=== PATIENT | female | born 1985 | race Hispanic/Latino ===

== ENCOUNTER 2018-10-25 01:02 | Emergency (ER) | payer BC, OTHER ==
[2018-10-25 01:26] LABS: HEMATOCRIT 36.9 % (36-48); LYMPHOCYTES % (AUTO) 31.9 % (21.0-51.0); MEAN CORPUSCULAR HGB CONC 34.2 g/dL (32.0-36.0); MEAN CORPUSCULAR VOLUME 87.7 fL (79-99); MONOCYTES % (AUTO) 8.7 % (3.0-13.0); NEUTROPHILS % (AUTO) 56.4 % (40.0-77.0); NUCLEATED RED BLOOD CELLS 0.1 % (0.0-0.19); PLATELET COUNT (AUTO) 312 K/uL (130-400); RED BLOOD CELL COUNT(AUTO) 4.21 MIL/uL (4.00-5.50); RED CELL DISTRIBUTION WIDTH 14.3 % (11.0-15.5); WHITE BLOOD COUNT (AUTO) 9.4 K/uL (4.8-10.8)
[2018-10-25 01:35] LABS: APPEARANCE,URINE Clear (CLEAR); BILIRUBIN,URINE Negative (NEGATIVE); COLOR,URINE Yellow (YELLOW); GLUCOSE, URINE (UA) >=1000 mg/dL (NEGATIVE); KETONES,URINE 15 mg/dL (NEGATIVE); LEUKOCYTE ESTERASE ,URINE Negative (NEGATIVE); NITRATE,URINE Negative (NEGATIVE); OCCULT BLOOD,URINE Small (NEGATIVE); PROTEIN,URINE Negative (NEGATIVE)
[2018-10-25 01:35] LABS: CREATININE 0.9 mg/dL (0.5-1.5); POTASSIUM 4.1 mmol/L (3.5-5.1)
[2018-10-25 01:38] LABS: INR 0.89 (0.85-1.15); PARTIAL THROMBOPLASTIN TIME 23.7 SEC (26.3-35.5); PROTHROMBIN TIME 9.4 SEC (9.6-11.6)
[2018-10-25 01:39] LABS: HCG,QUAL RESULT NEGATIVE (NEGATIVE)
[2018-10-25 01:40] LABS: ALBUMIN 3.4 g/dL (3.5-5.0); BILIRUBIN,TOTAL 0.2 mg/dL (0.2-1.0); TOTAL PROTEIN, SERUM 7.3 g/dL (6.0-8.3)
[2018-10-25 01:43] LABS: AMPHET/METH SCREEN,URINE NEGATIVE (NEGATIVE); BARBITURATE SCREEN, URINE NEGATIVE (NEGATIVE); BENZODIAZEPINES SCREEN,URINE NEGATIVE (NEGATIVE); CANNABINOID SCREEN,URINE NEGATIVE (NEGATIVE); COCAINE SCREEN,URINE NEGATIVE (NEGATIVE); OPIATE SCREEN,URINE NEGATIVE (NEGATIVE); PHENCYCLIDINE SCREEN,URINE NEGATIVE (NEGATIVE)
[2018-10-25 02:08] LABS: BACTERIA,URINE Few /HPF (None Seen); WBC,URINE 0-1 /HPF (0-1)
[2018-10-25] MEDS ORDERED: 0.9% SODIUM CHLORIDE 1000 ML IV BAG IV ONE (02:30)
== END 2018-10-25 04:46 | disposition home or self-care (01) ==
LOC: EDH 01:02
DX: E86.9 Volume depletion, unspecified (principal); R73.9 Hyperglycemia, unspecified; R07.89 Other chest pain
CPT/HCPCS: 36415; 71045; 80053; 80305; 81001; 81025; 84484; 85025; 85378; 85610; 85730; 87804 ×2; 93005; 96360; 96361; 99284; J7030

== ENCOUNTER 2019-08-19 04:01 | Emergency (ER) | payer OTHER | END 2019-08-19 05:27 | disposition home or self-care (01) | LOC: EDH 04:01 | DX: J11.1 Influenza due to unidentified influenza virus with other respiratory manifestations (principal); E11.9 Type 2 diabetes mellitus without complications; Z98.890 Other specified postprocedural states ==

== ENCOUNTER 2019-09-07 10:14 | Emergency (ER) | payer OTHER ==
[2019-09-07 11:37] LABS: BASOPHILS % (AUTO) 0.4 % (0.0-5.0); EOSINOPHILS % (AUTO) 0.9 % (0.0-8.0); HEMATOCRIT 37.6 % (36-48); LYMPHOCYTES % (AUTO) 22.5 % (21.0-51.0); MEAN CORPUSCULAR HEMOGLOBIN 29.3 pg (27.0-33.0); MEAN CORPUSCULAR HGB CONC 34.3 g/dL (32.0-36.0); MEAN CORPUSCULAR VOLUME 85.3 fL (79-99); MONOCYTES % (AUTO) 7.6 % (3.0-13.0); NEUTROPHILS % (AUTO) 68.2 % (40.0-77.0); PLATELET COUNT (AUTO) 335 K/uL (130-400); RED BLOOD CELL COUNT(AUTO) 4.41 MIL/uL (4.00-5.50); WHITE BLOOD COUNT (AUTO) 10.2 K/uL (4.8-10.8)
[2019-09-07 11:45] LABS: CREATININE 0.8 mg/dL (0.5-1.5); POTASSIUM 4.1 mmol/L (3.5-5.1)
== END 2019-09-07 12:12 | disposition home or self-care (01) ==
LOC: EDH 10:14
DX: M62.838 Other muscle spasm (principal); E11.9 Type 2 diabetes mellitus without complications; Z98.890 Other specified postprocedural states
CPT/HCPCS: 36415; 72040; 80048; 81025; 82550; 82948; 85025

== ENCOUNTER 2019-09-14 10:53 | Emergency (ER) | payer OTHER, SELFPAY ==
[2019-09-14] MEDS ORDERED: AMOXICILLIN/POTASSIUM CLAV 875-125 TABLET PO ONE (11:05)
== END 2019-09-14 12:21 | disposition home or self-care (01) ==
LOC: EDH 10:53
DX: L03.011 Cellulitis of right finger (principal); E11.9 Type 2 diabetes mellitus without complications; Z98.890 Other specified postprocedural states

== ENCOUNTER 2019-12-15 10:37 | Emergency (ER) | payer OTHER, SELFPAY ==
[2019-12-15] MEDS ORDERED: ONDANSETRON HCL 4 MG/2 ML VIAL ONE ×2 (11:08→11:09)
[2019-12-15 11:17] LABS: CREATININE 0.9 mg/dL (0.5-1.5); POTASSIUM 3.6 mmol/L (3.5-5.1)
[2019-12-15 11:21] LABS: ALBUMIN 3.7 g/dL (3.5-5.0); BILIRUBIN,DIRECT 0.2 mg/dL (0.0-0.3); BILIRUBIN,TOTAL 0.5 mg/dL (0.2-1.0)
[2019-12-15 11:22] LABS: BASOPHILS % (AUTO) 0.6 % (0.0-5.0); EOSINOPHILS % (AUTO) 2.7 % (0.0-8.0); HEMATOCRIT 39.9 % (36-48); LYMPHOCYTES % (AUTO) 23.6 % (21.0-51.0); MEAN CORPUSCULAR HEMOGLOBIN 29.6 pg (27.0-33.0); MEAN CORPUSCULAR HGB CONC 34.1 g/dL (32.0-36.0); MEAN CORPUSCULAR VOLUME 86.7 fL (79-99); MONOCYTES % (AUTO) 5.7 % (3.0-13.0); NEUTROPHILS % (AUTO) 66.6 % (40.0-77.0); PLATELET COUNT (AUTO) 419 K/uL (130-400); RED CELL DISTRIBUTION WIDTH 12.7 % (11.0-15.5); WHITE BLOOD COUNT (AUTO) 14.7 K/uL (4.8-10.8)
[2019-12-15] MEDS ORDERED: KETOROLAC TROMETHAMINE 30MG/ML ONE (11:55)
[2019-12-15 12:07] LABS: APPEARANCE,URINE Clear (CLEAR); BILIRUBIN,URINE Negative (NEGATIVE); COLOR,URINE Yellow (YELLOW); GLUCOSE, URINE (UA) TRACE mg/dL (NEGATIVE); KETONES,URINE Trace mg/dL (NEGATIVE); LEUKOCYTE ESTERASE ,URINE Negative (NEGATIVE); NITRATE,URINE Negative (NEGATIVE); OCCULT BLOOD,URINE Nonhemolyzed Trace (NEGATIVE); PROTEIN,URINE POS 1+ mg/dL (NEGATIVE)
[2019-12-15 12:10] LABS: HCG,QUAL RESULT NEGATIVE (NEGATIVE)
[2019-12-15 12:15] LABS: AMPHET/METH SCREEN,URINE NEGATIVE (NEGATIVE); BARBITURATE SCREEN, URINE NEGATIVE (NEGATIVE); BENZODIAZEPINES SCREEN,URINE NEGATIVE (NEGATIVE); CANNABINOID SCREEN,URINE NEGATIVE (NEGATIVE); COCAINE SCREEN,URINE POSITIVE (NEGATIVE); OPIATE SCREEN,URINE NEGATIVE (NEGATIVE); PHENCYCLIDINE SCREEN,URINE NEGATIVE (NEGATIVE)
[2019-12-15 12:16] LABS: BACTERIA,URINE Few /HPF (None Seen); MUCUS,URINE Many LPF (None Seen); WBC,URINE None Seen /HPF (0-1)
== END 2019-12-15 12:53 | disposition home or self-care (01) ==
LOC: EDH 10:37
DX: K29.00 Acute gastritis without bleeding (principal); F14.10 Cocaine abuse, uncomplicated; E11.9 Type 2 diabetes mellitus without complications; Z98.890 Other specified postprocedural states
CPT/HCPCS: 36415; 80048; 80076; 80305; 81001; 81025; 82550; 82948; 85025; 93005; 96361; 96374; 96375; 99284; J1885; J2405 ×2

== ENCOUNTER → 2021-01-31 | Outpatient (CLI) | payer MEDICAID ==
[~2021-01-31] MED LIST: GADOTERATE MEGLUMINE 10 MMOL/20 ML VIAL IV ONE
== END | disposition home or self-care (01) ==
LOC: RAH 13:01
PROVIDERS: ATTEND Otolaryngology Plastic Surgery within the Head & Neck
DX: H90.3 Sensorineural hearing loss, bilateral (principal); G93.89 Other specified disorders of brain
CPT/HCPCS: 70553; A9575

== ENCOUNTER 2023-12-17 04:27 | Emergency (ER) | payer MEDICAID ==
[~2023-12-17 04:27] MED LIST changes: +CEFU500T67 PO; +DICY10CA2 PO; -GADOTERATE MEGLUMINE 10 MMOL/20 ML VIAL IV ONE
[2023-12-17 04:49] LABS: BASOPHILS # (AUTO) 0.06 K/uL (0.00-0.20); BASOPHILS % (AUTO) 0.7 % (0.0-5.0); EOSINOPHILS # (AUTO) 0.34 K/uL (0.00-0.70); HEMATOCRIT 37.3 % (36-48); IMMATURE GRANULOCYTE ABSOLUTE 0.03 K/uL (0-1); LYMPHOCYTES # (AUTO) 3.5 K/uL (1.0-4.8); LYMPHOCYTES % (AUTO) 41.1 % (21.0-51.0); MEAN CORPUSCULAR HEMOGLOBIN 28.7 pg (27.0-33.0); MEAN CORPUSCULAR VOLUME 87.1 fL (79-99); MONOCYTES # (AUTO) 0.7 K/uL (0.1-1.0); MONOCYTES % (AUTO) 7.8 % (3.0-13.0); NEUTROPHILS # (AUTO) 3.9 K/uL (1.8-7.7); PLATELET COUNT (AUTO) 369 K/uL (130-400); RED BLOOD CELL COUNT(AUTO) 4.28 MIL/uL (4.00-5.50); RED CELL DISTRIBUTION WIDTH 13.5 % (11.0-15.5); WHITE BLOOD COUNT (AUTO) 8.5 K/uL (4.8-10.8)
[2023-12-17 05:03] LABS: CREATININE 0.8 mg/dL (0.5-1.0); POTASSIUM 3.9 mmol/L (3.5-5.1)
[2023-12-17 05:08] LABS: ALBUMIN 3.5 g/dL (3.5-5.0); BILIRUBIN,TOTAL 0.2 mg/dL (0.2-1.0); TOTAL PROTEIN, SERUM 7.8 g/dL (6.0-8.3)
[2023-12-17] MEDS ORDERED: FAMO20TA8 PO (06:14)
[2023-12-17 06:44] VITALS: BP 138/68; PULSE 79; RESP 18; O2SAT 98
== END 2023-12-17 06:46 | disposition home or self-care (01) ==
LOC: EDH 04:27
DX: K29.70 Gastritis, unspecified, without bleeding (principal)
CPT/HCPCS: 36415; 71045; 80053; 84484; 84703; 85025; 93005

== ENCOUNTER 2024-07-29 21:22 | Emergency (ER) | payer BC, MEDICAID ==
[~2024-07-29] VITALS: Ht 157.5 cm; Wt 99.8 kg
[~2024-07-29 21:22] MED LIST changes: +FAMO20TA8 PO
[2024-07-29 21:55] LABS: BASOPHILS # (AUTO) 0.03 K/uL (0.00-0.20); BASOPHILS % (AUTO) 0.3 % (0.0-5.0); EOSINOPHILS # (AUTO) 0.17 K/uL (0.00-0.70); EOSINOPHILS % (AUTO) 1.6 % (0.0-8.0); HEMATOCRIT 36.9 % (36-48); IMMATURE GRANULOCYTE ABSOLUTE 0.02 K/uL (0-1); LYMPHOCYTES # (AUTO) 3.2 K/uL (1.0-4.8); LYMPHOCYTES % (AUTO) 30.1 % (21.0-51.0); MEAN CORPUSCULAR HEMOGLOBIN 29.4 pg (27.0-33.0); MEAN CORPUSCULAR HGB CONC 34.1 g/dL (32.0-36.0); MEAN CORPUSCULAR VOLUME 86.2 fL (79-99); MONOCYTES # (AUTO) 0.6 K/uL (0.1-1.0); MONOCYTES % (AUTO) 5.4 % (3.0-13.0); NEUTROPHILS # (AUTO) 6.7 K/uL (1.8-7.7); NEUTROPHILS % (AUTO) 62.4 % (40.0-77.0); PLATELET COUNT (AUTO) 321 K/uL (130-400); RED BLOOD CELL COUNT(AUTO) 4.28 MIL/uL (4.00-5.50); RED CELL DISTRIBUTION WIDTH 13.1 % (11.0-15.5); WHITE BLOOD COUNT (AUTO) 10.7 K/uL (4.8-10.8)
[2024-07-29 21:57] LABS: APPEARANCE,URINE CLEAR (CLEAR); BILIRUBIN,URINE NEGATIVE (NEGATIVE); COLOR,URINE YELLOW (YELLOW); GLUCOSE, URINE (UA) NEGATIVE (NEGATIVE); KETONES,URINE NEGATIVE (NEGATIVE); LEUKOCYTE ESTERASE ,URINE NEGATIVE Leu/uL (NEGATIVE); NITRATE,URINE NEGATIVE (NEGATIVE); OCCULT BLOOD,URINE MODERATE (NEGATIVE); PH,URINE 5.5 (5.0-8.0); PROTEIN,URINE 20 mg/dL (NEGATIVE); UROBILINOGEN,URINE 0.2 mg/dL (0.2-1.0)
[2024-07-29 22:03] LABS: ADD UA MICROSCOPIC YES
[2024-07-29 22:03] LABS: CREATININE 0.7 mg/dL (0.5-1.0); POTASSIUM 3.6 mmol/L (3.5-5.1)
[2024-07-29 22:05] LABS: HCG,QUALITATIVE URINE NEGATIVE (NEGATIVE)
[2024-07-29 22:07] LABS: BACTERIA,URINE RARE /HPF (None Seen); MUCUS,URINE FEW LPF (None Seen); SQUAMOUS EPITHELIAL CELL,UR FEW /HPF (0-2); WBC,URINE 0-1 /HPF (0-1)
[2024-07-29 22:09] LABS: ALBUMIN 3.7 g/dL (3.5-5.0); BILIRUBIN,TOTAL 0.5 mg/dL (0.2-1.0); TOTAL PROTEIN, SERUM 7.7 g/dL (6.0-8.3)
[2024-07-29] MEDS: PANTOPrazole 40 MG/VIAL IVP ONE (22:41)
[2024-07-29] MEDS: 0.9%NACL 1000ML 1,000 ML IV ONE (22:41)
[2024-07-29] MEDS: ondanSETRON 4MG INJ IVP ONE (22:41)
[2024-07-29 23:52] LABS: BILIRUBIN,DIRECT 0.1 mg/dL (0.0-0.3)
[2024-07-30] MEDS: DICYCLOMINE HCL 10 MG/5 ML ML PO ONE (00:29)
[2024-07-30] MEDS: MAG/ALUM/SIMETH 30 ML UDCUP PO ONE (00:29)
[2024-07-30] MEDS: LIDOCAINE HCL 2% VISCOUS 15 ML UDCUP PO ONE (00:29)
[2024-07-30] MEDS: morPHINE 4 MG SYG IVP ONE (00:34)
[2024-07-30] MEDS ORDERED: DICY20TA2 PO (00:50)
[2024-07-30] MEDS ORDERED: PANT20TA18 PO (00:50)
[2024-07-30] MEDS ORDERED: ONDA-243 PO (00:50)
--- NOTE | 2024-07-30 00:51 | ERN ---
ED Note History of Present Illness Stated Complaint: STOMACH PAIN, NAUSEA, VOMITTING Chief Complaint: Diarrhea Time Seen by MD: 21:59 Time Seen by Midlevel: 21:59 Dictation: Patient is a 39-year-old female with a history of who presents to the emergency department with complaints of epigastric pain associated with nausea and nonbloody diarrhea x4 onset today. Patient reports she thinks it is because she ate min with the last night. Reports being on Ozempic. Allergies: Coded Allergies: No Known Drug Allergies (Unverified Allergy, Unknown, 08/19/19) Home Meds Active Scripts Famotidine (Famotidine) 20 Mg Tablet, 20 MG PO BID for 30 Days, #60 TAB Prov:KATEY HANSON MD 12/17/23 Cefuroxime Axetil (Cefuroxime) 500 Mg Tablet, 500 MG PO BID, #20 TAB 0 Refills Prov:BUCKY SHIRLEY [employer] HELPER 11/05/23 Dicyclomine HCl (Dicyclomine HCl) 10 Mg Capsule, 20 MG PO TIDP PRN for ABDOMINAL PAIN, #18 CAP 0 Refills Prov:BUCKY SHIRLEY [employer] PAINTER HELPER 11/05/23 Past Medical History Past Medical History: Other Additional Past Medical Hx: GASTRITIS Surgical History: Social History: Negative LMP: Jul 13, 2024 RN Note Reviewed/Agreed w/PFSH: Yes Review of System Dictation Constitutional: Negative for fever,chills, and weight loss Eyes: Negative for injury, pain,redness, and discharge ENT: Negative for injury,pain or swelling Cardiovascular: Negative for chest pain, palpitations, and edema Respiratory: Negative for shortness of breath, cough, and wheezing, Abdomen/GI: Negative for vomiting, and constipation positive for abdominal pain, nausea, diarrhea Back: Negative for injury and pain : Negative for injury, bleeding and discharge MS/Extremity: Negative for injury and deformity Skin: Negative for rash, and discoloration Neuro: Negative for headache, weakness, numbness, tingling, and seizure Psych: Negative for suicide ideation, homicidal ideation, and hallucinations Initial Vital Sign VS Vital Signs Date Time Temp Pulse Resp B/P (MAP) Pulse Ox O2 Delivery O2 Flow Rate FiO2 07/29/24 21:32 98.4 80 18 168/98 98 Room Air 0 07/29/24 21:49 21 Physical Exam Dictation Vital Signs reviewed General Appearance: Alert, oriented x 3, no acute distress, well developed, nourished. Head and Face: non-traumatic. Eyes: PERRL, pink conjunctivas, eyelid no trauma, anterior chamber with arcus senilis. Ears: Pinnas intact and no signs of trauma or erythema ear canals clear and no discharge TM no erythema Nose: No discharge, no bleeding. Oropharynx: Mouth normal, tongue pink. pharynx clear,no erythema, tonsils no exudates, no abscesses noted, mucous membrane moist Neck: Supple, non-tender, no thyromegaly, no masses, no JVD, no bruits Breast:Deferred Chest:No tenderness, no crepitus, no paradoxical movement, no retractions Lungs:Clear, well-ventilated, symmetric, no rales, no wheezing, no rhonchi, no stridor, good breath sounds bilaterally Heart: Regular rate, regular rhythm, no murmur, no gallops Vascular: no peripheral edema, Abdomen: Soft, positive bowel sounds, nondistended, no guarding, nontender, no rebound, no masses no hepatomegaly, no splenomegaly, no Almaguer's sign, no hernias. Rectal: Deferred Genital: Deferred Neurological: Normal speech, motor function intact, sensory function intact Musculoskeletal: Neck nontender, full range of motion, back nontender, full range of motion, Extremities: nontender, full range of motion Skin: Color pink, dry, no turgor, no rash, no lacerations, no abrasions, no contusions. Lymphatic: Deferred Results (Laboratory/Radiology) Laboratory/Radiology Laboratory Tests Test 07/29/24 21:43 07/29/24 21:48 Urine Color YELLOW (YELLOW) Urine Appearance CLEAR (CLEAR) Urine pH 5.5 (5.0-8.0) Urine Specific [place] 1.029 (1.001-1.031) Urine Protein 20 mg/dL (NEGATIVE) H Urine Glucose (UA) NEGATIVE mg/dL (NEGATIVE) Urine Ketones NEGATIVE mg/dL (NEGATIVE) Urine Occult Blood MODERATE (NEGATIVE) H Urine Nitrate NEGATIVE (NEGATIVE) Urine Bilirubin NEGATIVE mg/dL (NEGATIVE) Urine Urobilinogen 0.2 mg/dL (0.2-1.0) Urine Leukocyte Esterase NEGATIVE Jeniffer/uL Urine RBC 2-5 /HPF (0-1) H Urine WBC 0-1 /HPF (0-1) Urine Squamous Epithelial Cells FEW /HPF (0-2) Urine Bacteria RARE /HPF (None Seen) Urine Hyaline Casts 2-5 /LPF (0-1 /LPF) H Urine HCG, Qualitative NEGATIVE (NEGATIVE) White Blood Count 10.7 K/uL (4.8-10.8) Red Blood Count 4.28 MIL/uL (4.00-5.50) Hemoglobin 12.6 g/dL (12.0-16.0) Hematocrit 36.9 % (36-48) Mean Corpuscular Volume 86.2 fL (79-99) Mean Corpuscular Hemoglobin 29.4 pg (27.0-33.0) Mean Corpuscular Hemoglobin Concent 34.1 g/dL (32.0-36.0) Red Cell Distribution Width 13.1 % (11.0-15.5) Platelet Count 321 K/uL (130-400) Mean Platelet Volume 9.8 fL (7.5-10.5) Immature Granulocyte % (Auto) 0.2 % (0-1) Neutrophils (%) (Auto) 62.4 % (40.0-77.0) Lymphocytes (%) (Auto) 30.1 % (21.0-51.0) Monocytes (%) (Auto) 5.4 % (3.0-13.0) Eosinophils (%) (Auto) 1.6 % (0.0-8.0) Basophils (%) (Auto) 0.3 % (0.0-5.0) Neutrophils # (Auto) 6.7 K/uL (1.8-7.7) Lymphocytes # (Auto) 3.2 K/uL (1.0-4.8) Monocytes # (Auto) 0.6 K/uL (0.1-1.0) Eosinophils # (Auto) 0.17 K/uL (0.00-0.70) Basophils # (Auto) 0.03 K/uL (0.00-0.20) Absolute Immature Granulocyte (auto 0.02 K/uL (0-1) Nucleated Red Blood Cells 0.0 % (0.0-0.19) Sodium Level 138 mmol/L (136-145) Potassium Level 3.6 mmol/L (3.5-5.1) Chloride Level 104 mmol/L (101-111) Carbon Dioxide Level 30 mmol/L (21-32) Blood Urea Nitrogen 11 mg/dL (7-18) Creatinine 0.7 mg/dL (0.5-1.0) Glomerular Filtration Rate Calc 111 mL/min (>90) Random Glucose 87 mg/dL (70-105) Total Calcium 8.8 mg/dL (8.5-10.1) Total Bilirubin 0.5 mg/dL (0.2-1.0) Direct Bilirubin 0.1 mg/dL (0.0-0.3) Aspartate Amino Transf (AST/SGOT) 20 U/L (10-37) Alanine Aminotransferase (ALT/SGPT) 44 U/L (12-78) Alkaline Phosphatase 83 U/L (50-136) Troponin I High Sensitivity 23 ng/L (4-50) Total Protein 7.7 g/dL (6.0-8.3) Albumin 3.7 g/dL (3.5-5.0) Amylase Level 36 U/L (25-115) Lipase 44 U/L (16-77) Labs Reviewed?: Yes EKG: (+) rhythm (Sinus rhythm) EKG Comment: EKG 07/29/20242256 ventricular rate 63, regular rate and rhythm, normal sinus rhythm, no STEMI ED Course ED Course Orders Procedure Category Date Status Time Vital Signs Per CPOE 07/29/24 Transmitted Routine 21:36 Saline Lock Iv CPOE 07/29/24 Transmitted 21:36 Cbc With Differential LAB 07/29/24 Complete 21:36 Lipase LAB 07/29/24 Complete 21:36 Amylase LAB 07/29/24 Complete 21:36 Urinalysis Profile LAB 07/29/24 Complete 21:36 ,Urine Test LAB 07/29/24 Complete 21:36 12 Lead Ekg Tracing- EKG 07/29/24 Logged Technical 21:59 Troponin I High LAB 07/29/24 Complete Sensitivity 21:59 Ondansetron 4mg Inj PHA 07/29/24 Complete (Zofran 4mg Inj) 23:00 Pantoprazole 40mg Inj PHA 07/29/24 Complete (Protonix 40mg Inj 23:00 0.9%Nacl 1000ml (Ns PHA 07/29/24 Complete 1000ml) 23:00 Basic Metabolic Panel LAB 07/29/24 Complete 21:48 Hepatic Function Panel LAB 07/29/24 Complete 21:48 Morphine 4mg Syg PHA 07/30/24 Complete (Morphine 4mg Syg) 00:30 Lidocaine Hcl 2% PHA 07/30/24 Complete Viscous (Lidocaine Hcl 00:30 Mag/Alum/Simeth 30ml PHA 07/30/24 Complete (Maalox Plus 30ml) 00:30 Dicyclomine Hcl PHA 07/30/24 Complete (Bentyl 10mg/5ml 00:30 Current Medications Medications (Trade) Dose Ordered Sig/Alexy Route PRN Reason Start Time Stop Time Status Last Admin Dose Admin Al Hydroxide/Mg Hydroxide (MAALox PLUS 30ML) 30 ml ONCE ONCE PO 07/30/24 00:30 07/30/24 00:31 DC 07/30/24 00:29 Dicyclomine HCl (Bentyl 10mg/5ml Syrup) 10 mg ONCE ONCE PO 07/30/24 00:30 07/30/24 00:31 DC 07/30/24 00:29 Lidocaine HCl (Lidocaine HCl 2% Viscous) 10 ml ONCE ONCE PO 07/30/24 00:30 07/30/24 00:31 DC 07/30/24 00:29 Morphine Sulfate (morPHINE 4MG SYG) 4 mg ONCE ONCE IVP 07/30/24 00:30 07/30/24 00:31 DC 07/30/24 00:34 Ondansetron HCl (zoFRAN 4MG INJ) 4 mg ONCE ONCE IVP 07/29/24 23:00 07/29/24 23:01 DC 07/29/24 22:41 Pantoprazole Sodium (PROTonix 40MG INJ) 40 mg ONCE ONCE IVP 07/29/24 23:00 07/29/24 23:01 DC 07/29/24 22:41 Sodium Chloride 1,000 ml @ 0 mls/hr ONCE ONCE IV 07/29/24 23:00 07/29/24 23:01 DC 07/29/24 22:41 Vital Signs Date Time Temp Pulse Resp B/P (MAP) Pulse Ox O2 Delivery O2 Flow Rate FiO2 07/29/24 23:43 98.8 68 20 130/84 100 Room Air* 0 21 07/29/24 21:49 98.8 66 20 132/88 100 Room Air* 0 21 12/26/24 21:32 98.4 80 18 168/98 98 Room Air 0 Medical Decision Making MDM Patient is a 39-year-old female with a history of who presents to the emergency department with complaints of epigastric pain associated with nausea and nonbloody diarrhea x4 onset today. Patient reports she thinks it is because she ate min with the last night. Reports being on Ozempic. CBC showed no leukocytosis, no anemia, chemistry showed no electrolyte imbalance, negative lipase, negative liver enzymes, negative troponin, urinalysis unremarkable. Patient reports improving in pain after medications. Patient in no acute distress, nontoxic appearance, nontender abdomen to palpation, we will be discharged to follow up with PCP Differential diagnosis: Gastroenteritis, gastritis, UTI, electrolyte imbalance Need for hospitalization: Patient does not meet criteria for hospitalization. There are no social concerns with this patient. DX & DISP Disposition: Discharge Departure Impression: Primary Impression: Gastroenteritis Additional Impressions: Abdominal pain, Diarrhea Condition: Stable Scripts Pantoprazole Sodium (Pantoprazole Sodium) 20 Mg Tablet.dr 1 TAB PO DAILY for 30 Days, #30 TAB 0 Refills Prov: ZELDA RIVERA [facility] 07/30/24 Dicyclomine HCl (Bentyl) 20 Mg Tab 1 TAB PO BID for irritable bowel symptoms for 30 Days, #60 TAB 0 Refills Prov: ZELDA RIVERA [facility] 07/30/24 Ondansetron (Ondansetron Odt) 4 Mg Tab.rapdis 4 MG PO Q6HPRN PRN for nausea, #16 TAB 0 Refills Prov: ZELDA RIVERA [facility] 07/30/24 Additional Instructions: Is follow up with your primary doctor in 1-2 days. If symptoms worsen please return to ER. FOLLOW-UP WITH PRIMARY CARE PROVIDER IN 1 TO 2 DAYS. TAKE MEDICATIONS DIRECTED HERE IN THE EMERGENCY ROOM. OKAY TO CONTINUE HOME MEDICATIONS UNLESS OTHERWISE DISCUSSED DURING YOUR VISIT IN THE EMERGENCY ROOM TODAY. RETURN TO YOUR NEAREST EMERGENCY ROOM IF SYMPTOMS WORSEN OR IF THERE IS NO IMPROVEMENT. CALL 911 IF YOU NEED IMMEDIATE ASSISTANCE. TAKE TYLENOL OR MOTRIN [id number] NEEDED AND IF NO CONTRAINDICATIONS ARE PRESENT. INCREASE ORAL HYDRATION. A WOUND CULTURE OR URINE CULTURE WAS ORDERED HERE IN THE EMERGENCY ROOM DEPARTMENT PLEASE FOLLOW-UP WITH PRIMARY CARE PROVIDER AND ADVISE THEM TO GET REPEAT PORTS FROM OUR FACILITY. IF YOU HAD ANY MARCIA WRAP/SPLINTS THAT WERE APPLIED HERE, PLEASE DO NOT REMOVE THEM UNTIL YOU SEE YOUR PRIMARY CARE OR SPECIALTY. Referrals: JOEY SPAIN (PCP) Time of Disposition: 00:50 I have reviewed the case, and I agree with, Diagnosis and Plan ZELDA RIVERA [facility] Jul 30, 2024 00:51
[2024-07-30 01:04] VITALS: BP 132/78; PULSE 74; RESP 20; TEMP 98.8; O2SAT 100
--- NOTE | 2024-07-30 06:10 | EKG ---
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
== END 2024-07-30 01:05 | disposition home or self-care (01) ==
LOC: EDH 21:22
DX: K52.9 Noninfective gastroenteritis and colitis, unspecified (principal); Z79.899 Other long term (current) drug therapy; Z98.890 Other specified postprocedural states
CPT/HCPCS: 99284; 96374; 96375 ×2; 82150; 80076; 84484; 80048; 83690; 85025; 81001; 81025; 36415; 93005; J7030; J2405; J2470; J2270

== ENCOUNTER 2025-05-19 05:19 | Inpatient (IN) | payer BC ==
[~2025-05-19] VITALS: Ht 167.6 cm; Wt 92.5 kg
[~2025-05-19 05:19] MED LIST changes: +DICY-20 PO; -DICY10CA2 PO; +DICY20TA2 PO; +ONDA-243 PO; +PANT20TA18 PO
--- NOTE | 2025-05-19 05:43 | ERN ---
ED Note History of Present Illness Stated Complaint: C/O ABD PAIN WITH NAUSEA X 4 DAYS Chief Complaint: Abdominal Pain Time Seen by MD: 05:27 Dictation: This is a 40-year-old morbidly obese female who presented to the emergency room with a upper abdominal pain and nausea that started about 4 days ago. The pain is mostly in the epigastric and right and left upper quadrant areas. Patient reports that she has associated nausea and has not been able to eat and drink normally. She does give a history of constipation and her last bowel m ovement was 2 days ago. She also indulged in alcohol a last week for her birthday. Patient states that this morning she took the Tylenol and it provided no relief, but the pain became intense Patient denies fever, weight loss, vom iting, diarrhea, urinary frequency, hematuria, dysuria, vaginal bleeding, vaginal discharge. No vomitings. No hematemesis or melena. Temperature 98 pulse 84 respirations 20 blood pressure 119/70 with a pulse oximetry of 96% on room air Allergies: Coded Allergies: No Known Drug Allergies (Unverified Allergy, Unknown, 08/19/19) Home Meds Active Scripts Pantoprazole Sodium (Pantoprazole Sodium) 20 Mg Tablet.dr, 1 TAB PO DAILY for 30 Days, #30 TAB 0 Refills Prov:ZELDA RIVERA [facility] 07/30/24 Dicyclomine HCl (Bentyl) 20 Mg Tab, 1 TAB PO BID for irritable bowel symptoms for 30 Days, #60 TAB 0 Refills Prov:ZELDA RIVERA [facility] 07/30/24 Ondansetron (Ondansetron Odt) 4 Mg Tab.rapdis, 4 MG PO Q6HPRN PRN for nausea, #16 TAB 0 Refills Prov:ZELDA RIVERA [facility] 07/30/24 Famotidine (Famotidine) 20 Mg Tablet, 20 MG PO BID for 30 Days, #60 TAB Prov:KATEY HANSON MD 12/17/23 Cefuroxime Axetil (Cefuroxime) 500 Mg Tablet, 500 MG PO BID, #20 TAB 0 Refills Prov:BUCKY SHIRLEY 11/05/23 Dicyclomine HCl (Dicyclomine HCl) 10 Mg Capsule, 20 MG PO TIDP PRN for ABDOMINAL PAIN, #18 CAP 0 Refills Prov:BUCKY SHIRLEY [employer] 11/05/23 Past Medical History Past Medical History: Ovarian Cyst, Other Additional Past Medical Hx: HX OF GASTRITIS Surgical History: Social History: ETOH, Negative LMP: May 14, 2025 RN Note Reviewed/Agreed w/PFSH: Yes Review of System Dictation Constitutional: Negative for fever,chills, and weight loss Eyes: Negative for injury, pain,redness, and discharge ENT: Negative for injury,pain or swelling Cardiovascular: Negative for chest pain, palpitations, and edema Respiratory: Negative for shortness of breath, cough, and wheezing, Abdomen/GI: Positive for abdominal pain, nausea, and constipation denied vomiting, diarrhea, Back: Negative for injury and pain : Negative for injury, bleeding and discharge MS/Extremity: Negative for injury and deformity Skin: Negative for rash, and discoloration Neuro: Negative for headache, weakness, numbness, tingling, and seizure Psych: Negative for suicide ideation, homicidal ideation, and hallucinations Initial Vital Sign VS Vital Signs Date Time Temp Pulse Resp B/P (MAP) Pulse Ox O2 Delivery O2 Flow Rate FiO2 05/19/25 05:21 98.1 84 20 119/70 96 Room Air 05/19/25 05:59 0 21 Physical Exam Dictation General: awake, alert, NAD morbidly obese Head/Face: Normocephalic, atraumatic Eyes: PERRL, EOMI, vision at baseline ENT: oral cavity clear, TMs clear, no signs of infection Neck: Trachea midline, supple, no nuchal rigidity Cardiovascular: RRR, normal S1/S2, No MRGs, no JVD Respiratory: CTAB, no respiratory distress, No rales or wheezes Abdomen: Soft, non-tender, non-distended, normal bowel sounds, no guarding or rebound. Skin: Warm, dry, normal turgor, no rash MS/Extremity: Pulses equal, no cyanosis, neurovascular intact, FROM Neuro: COAx4, GCS 15, strength 5/5, CN 2-12 intact, normal cerebellar exam, normal gait, Psych: Normal behavior, mood, and affect normal Extremities-trace edema without any palpable cords, Homans sign is negative Results (Laboratory/Radiology) Laboratory/Radiology Laboratory Tests Test 05/19/25 05:38 05/19/25 05:55 White Blood Count 9.8 K/uL (4.8-10.8) Red Blood Count 4.07 MIL/uL (4.00-5.50) Hemoglobin 12.2 g/dL (12.0-16.0) Hematocrit 35.6 % (36-48) L Mean Corpuscular Volume 87.5 fL (79-99) Mean Corpuscular Hemoglobin 30.0 pg (27.0-33.0) Mean Corpuscular Hemoglobin Concent 34.3 g/dL (32.0-36.0) Red Cell Distribution Width 12.8 % (11.0-15.5) Platelet Count 341 K/uL (130-400) Mean Platelet Volume 9.8 fL (7.5-10.5) Immature Granulocyte % (Auto) 0.3 % (0-1) Neutrophils (%) (Auto) 66.7 % (40.0-77.0) Lymphocytes (%) (Auto) 25.0 % (21.0-51.0) Monocytes (%) (Auto) 5.8 % (3.0-13.0) Eosinophils (%) (Auto) 1.9 % (0.0-8.0) Basophils (%) (Auto) 0.3 % (0.0-5.0) Neutrophils # (Auto) 6.5 K/uL (1.8-7.7) Lymphocytes # (Auto) 2.5 K/uL (1.0-4.8) Monocytes # (Auto) 0.6 K/uL (0.1-1.0) Eosinophils # (Auto) 0.19 K/uL (0.00-0.70) Basophils # (Auto) 0.03 K/uL (0.00-0.20) Absolute Immature Granulocyte (auto 0.03 K/uL (0-1) Nucleated Red Blood Cells 0.0 % (0.0-0.19) Sodium Level 140 mmol/L (136-145) Potassium Level 3.8 mmol/L (3.5-5.1) Chloride Level 103 mmol/L (101-111) Carbon Dioxide Level 30 mmol/L (21-32) Blood Urea Nitrogen 14 mg/dL (7-18) Creatinine 0.8 mg/dL (0.5-1.0) Glomerular Filtration Rate Calc 94 mL/min (>90) Random Glucose 122 mg/dL (70-105) H Total Calcium 9.0 mg/dL (8.5-10.1) Total Bilirubin 0.4 mg/dL (0.2-1.0) Direct Bilirubin 0.1 mg/dL (0.0-0.3) Aspartate Amino Transf (AST/SGOT) 17 U/L (10-37) Alanine Aminotransferase (ALT/SGPT) 33 U/L (12-78) Alkaline Phosphatase 80 U/L (50-136) Total Protein 8.0 g/dL (6.0-8.3) Albumin 3.8 g/dL (3.5-5.0) Triglycerides Level 229 mg/dL (30-200) H Lipase 1018 U/L (16-77) *H Urine Color YELLOW (YELLOW) Urine Appearance CLOUDY (CLEAR) H Urine pH 5.5 (5.0-8.0) Urine Specific [place] 1.030 (1.001-1.031) Urine Protein 20 mg/dL (NEGATIVE) H Urine Glucose (UA) NEGATIVE mg/dL (NEGATIVE) Urine Ketones NEGATIVE mg/dL (NEGATIVE) Urine Occult Blood MODERATE (NEGATIVE) H Urine Nitrate NEGATIVE (NEGATIVE) Urine Bilirubin NEGATIVE mg/dL (NEGATIVE) Urine Urobilinogen 0.2 mg/dL (0.2-1.0) Urine Leukocyte Esterase NEGATIVE Jeniffer/uL Urine RBC 2-5 /HPF (0-1) H Urine WBC 2-5 /HPF (0-1) H Urine Squamous Epithelial Cells MANY /HPF (0-2) Urine Bacteria None /HPF (None Seen) Urine HCG, Qualitative NEGATIVE (NEGATIVE) Labs Reviewed?: Yes CT Scan Comment: [place] [id number] [address] IMAGING REPORT Signed PATIENT: MARBIN STOCKTON MR#: [id number] : 1985 SEX: F AGE: 40 LOCATION: [facility] ORDER 9 STATUS: REG ER REPORT#: [id number] SERVICE 7 REASON: upeer abdominal pain ? biliary colic renal colic Constipation ORDERING PHYSICIAN: JB GARCIA MD PROCEDURE: ABD PELVWO - CT ABD/PEL WO CON RENAL/APPY EXAM: CT Abdomen and Pelvis Without IV contrast CLINICAL HISTORY: upeer abdominal pain ? biliary colic renal colic Constipation TECHNIQUE: Axial computed tomography images of the abdomen and pelvis without intravenous contrast. CONTRAST: No IV contrast. COMPARISON: None provided. FINDINGS: LUNG BASES: Bibasilar atelectasis. No pleural effusions are seen. LIVER: Unremarkable. GALLBLADDER AND BILE DUCTS: The gallbladder appears within normal limits. No radioopaque gallstones are seen. No biliary ductal dilatation is evident. PANCREAS: Mild haziness of fat about pancreas. SPLEEN: Unremarkable. ADRENAL GLANDS: Unremarkable. KIDNEYS, URETERS, AND BLADDER: The kidneys appear within normal limits. There is no hydronephrosis or hydroureter. 0.2 cm calculus in the mid pole of the left kidney. STOMACH AND BOWEL: Unremarkable appearance of the stomach and bowel. No evidence of bowel obstruction. No evidence suggesting enteritis or colitis. APPENDIX: No evidence of acute appendicitis on CT examination. PERITONEUM: No free fluid. No free air. LYMPH NODES: No lymphadenopathy is evident. REPRODUCTIVE: Unremarkable as visualized. VASCULATURE: No evidence of abdominal aortic aneurysm. BONES: No aggressive appearing osseous lesion. No acute osseous pathology evident. IMPRESSION: Mild fatty haziness about pancreas. Correlate clinically to exclude acute pancreatitis. /[place] DICTATED BY: KENZIE SZYMANSKI MD DATE: 05/19/25817 ELECTRONICALLY SIGNED BY: KENZIE SZYMANSKI MD DATE: 05/19/25817 ED Course ED Course Orders Procedure Category Date Status Time Vital Signs Per CPOE 05/19/25 Transmitted Routine 05:29 Saline Lock Iv CPOE 05/19/25 Transmitted 05:29 Cbc With Differential LAB 05/19/25 Complete 05:29 Lipase LAB 05/19/25 Complete 05:29 Urinalysis Profile LAB 05/19/25 Complete 05:29 Basic Metabolic Panel LAB 05/19/25 Complete 05:29 ,Urine Test LAB 05/19/25 Complete 05:36 Ondansetron 4mg Inj PHA 05/19/25 Complete (Zofran 4mg Inj) 06:00 Famotidine 20mg Vial PHA 05/19/25 Complete (Pepcid 20mg Vial) 06:00 Morphine 4mg Syg PHA 05/19/25 Complete (Morphine 4mg Syg) 06:30 Ct Abd/Pel Wo Con CT 05/19/25 Resulted Renal/Appy 06:28 0.9%Nacl 1000ml (Ns PHA 05/19/25 In Process 1000ml) 07:00 Triglycerides LAB 05/19/25 Complete 07:25 Hepatic Function Panel LAB 05/19/25 Complete 07:26 Current Medications Medications (Trade) Dose Ordered Sig/Alexy Route PRN Reason Start Time Stop Time Status Last Admin Dose Admin Famotidine (Pepcid 20mg Vial) 20 mg ONCE ONCE IV 05/19/25 06:00 05/19/25 06:01 DC 05/19/25 05:57 Morphine Sulfate (morPHINE 4MG SYG) 4 mg ONCE ONCE IVP 05/19/25 06:30 05/19/25 06:31 DC 05/19/25 06:30 Ondansetron HCl (zoFRAN 4MG INJ) 4 mg ONCE ONCE IVP 05/19/25 06:00 05/19/25 06:01 DC 05/19/25 05:57 Sodium Chloride 1,000 ml @ 125 mls/hr ONCE ONCE IV 05/19/25 07:00 05/19/25 14:59 05/19/25 06:47 Vital Signs Date Time Temp Pulse Resp B/P (MAP) Pulse Ox O2 Delivery O2 Flow Rate FiO2 05/19/25 07:45 97.5 76 16 107/65 99 Room Air* 0 21 05/19/25 05:59 98.2 71 18 124/76 96 Room Air* 0 21 05/19/25 05:21 98.1 84 20 119/70 96 Room Air We will perform diagnostic labs, advanced imaging and administer medications according to the patient's complaint. Once the results are available, will review and personally interpreted the labs to rule out any acute life- threatening emergency the trach require immediate intervention and treatment. I will then re-evaluate the patient after treatment and diagnostic exams have return to determine whether the patient requires any further testing, can safely be discharged home or need further admission to hospital for additional treatment and evaluation. Medical Decision Making MDM Differential diagnosis: Gastritis, biliary colic, esophagitis, cholecystitis, cholelithiasis, pancreatitis, constipation This is a 40-year-old morbidly obese female who presented to the emergency room with a upper abdominal pain and nausea that started about 4 days ago. The pain is mostly in the epigastric and right and left upper quadrant areas. Patient reports that she has associated nausea and has not been able to eat and drink normally. She does give a history of constipation and her last bowel movement was 2 days ago. She also indulged in alcohol a last week for her birthday. Patient states that this morning she took the Tylenol and it provided no relief, but the pain became intense Patient denies fever, weight loss, vomiti ng, diarrhea, urinary frequency, hematuria, dysuria, vaginal bleeding, vaginal discharge. No vomitings. No hematemesis or melena. Temperature 98 pulse 84 respirations 20 blood pressure 119/70 with a pulse oximetry of 96% on room air 6:00 p.m. CBC is with a normal limits urine test is negative. BNP 7 is with a normal limits. Urinalysis is unremarkable other than occult hematuria. 6:[address] lipase is 1018. CT scan of the abdomen and pelvis was requested which is pending at this time. I have updated the patient on likely acute pancreatitis and recommended admission to the hospital for observation and also management. Rationale: Tests considered and ordered secondary to shared decision making include: Labs CT scan Previous outside records reviewed: Old ER visits. Risk of complication and/or morbidity or mortality of patient management: None Medications-Per medication reconciliation Need for hospitalization: Patient does not meet criteria for hospitalization. Need for emergency major/minor surgery: No There are no social concerns with this patient. Prescription drug management Prescriptions will include symptomatic care Patient's prior external medical records from other ER visits were reviewed by me as indicated. Prior testing and results from previous visits were reviewed. Prior tests were taken into account with medical decision making and resource utilization, independent historian/historians were used to obtain complete medical history. I independently interpreted the test that were performed, results were reviewed by me and considered findings on radiology if ordered. Medical management and examination interpretation discussions were had by me with other qualified healthcare professionals as indicated for the patient's care. Patient will be admitted under the care of DX & DISP Disposition: Inpatient Decision to Admit Time: 08:18 Departure Impression: Primary Impression: Acute pancreatitis Additional Impression: Intractable abdominal pain Condition: Stable Additional Instructions: Patient and the caregiver have been informed of all the diagnostic tests and the imaging conducted during the today's visit to the emergency room and has verbalized understanding of the results I have personally reviewed and interpreted all diagnostic exams performed here in the ER today as well as the vital signs documented by the nursing staff. The patient is now being discharged to home and should follow up with the primary care physician or the specialist as directed by the ER staff. Counseling done on Weight loss diet and exercise avoidance of greasy food . Alcohol abstinence and lifestyle modifications. Referrals: KAYLAN BRADY MD (PCP) JB GARCIA MD May 19, 2025 05:43 KATEY HANSON MD May 19, 2025 07:24
[2025-05-19 05:44] LABS: IMMATURE GRANULOCYTE ABSOLUTE 0.03 K/uL (0-1); NUCLEATED RED BLOOD CELLS 0.0 % (0.0-0.19); PLATELET COUNT (AUTO) 341 K/uL (130-400); RED BLOOD CELL COUNT(AUTO) 4.07 MIL/uL (4.00-5.50); RED CELL DISTRIBUTION WIDTH 12.8 % (11.0-15.5); WHITE BLOOD COUNT (AUTO) 9.8 K/uL (4.8-10.8)
[2025-05-19] MEDS: FAMOTIDINE 20MG VIAL IV ONE (05:57)
[2025-05-19 05:59] LABS: CREATININE 0.8 mg/dL (0.5-1.0); GLOMERULAR FILTR. RATE CALC 94.0 mL/min (>90); GLUCOSE,RANDOM 122.0 mg/dL (70-105); SODIUM SERUM 140.0 mmol/L (136-145); UREA NITROGEN, BLOOD 14.0 mg/dL (7-18)
[2025-05-19 06:13] LABS: APPEARANCE,URINE CLOUDY (CLEAR); GLUCOSE, URINE (UA) NEGATIVE (NEGATIVE); LEUKOCYTE ESTERASE ,URINE NEGATIVE Leu/uL (NEGATIVE); NITRATE,URINE NEGATIVE (NEGATIVE); OCCULT BLOOD,URINE MODERATE (NEGATIVE)
[2025-05-19 06:18] LABS: ADD UA MICROSCOPIC YES
[2025-05-19 06:19] LABS: SQUAMOUS EPITHELIAL CELL,UR MANY /HPF (0-2)
[2025-05-19] MEDS: 0.9%NACL 1000ML 1,000 ML IV ONE (06:47)
--- NOTE | 2025-05-19 07:18 | HMCIMG ---
EXAM: CT Abdomen and Pelvis Without IV contrast CLINICAL HISTORY: upeer abdominal pain ? biliary colic renal colic Constipation TECHNIQUE: Axial computed tomography images of the abdomen and pelvis without intravenous contrast. CONTRAST: No IV contrast. COMPARISON: None provided. FINDINGS: LUNG BASES: Bibasilar atelectasis. No pleural effusions are seen. LIVER: Unremarkable. GALLBLADDER AND BILE DUCTS: The gallbladder appears within normal limits. No radioopaque gallstones are seen. No biliary ductal dilatation is evident. PANCREAS: Mild haziness of fat about pancreas. SPLEEN: Unremarkable. ADRENAL GLANDS: Unremarkable. KIDNEYS, URETERS, AND BLADDER: The kidneys appear within normal limits. There is no hydronephrosis or hydroureter. 0.2 cm calculus in the mid pole of the left kidney. STOMACH AND BOWEL: Unremarkable appearance of the stomach and bowel. No evidence of bowel obstruction. No evidence suggesting enteritis or colitis. APPENDIX: No evidence of acute appendicitis on CT examination. PERITONEUM: No free fluid. No free air. LYMPH NODES: No lymphadenopathy is evident. REPRODUCTIVE: Unremarkable as visualized. VASCULATURE: No evidence of abdominal aortic aneurysm. BONES: No aggressive appearing osseous lesion. No acute osseous pathology evident. IMPRESSION: Mild fatty haziness about pancreas. Correlate clinically to exclude acute pancreatitis. /[place]
[2025-05-19 08:00] LABS: ASPARTATE AMINOTRANSFERASE 17.0 U/L (10-37); TOTAL PROTEIN, SERUM 8.0 g/dL (6.0-8.3)
[2025-05-19] MEDS: ENOXAPARIN SODIUM 40 MG/0.4 ML SYRINGE SQ SCH (09:32)
[2025-05-19] MEDS: THIAMINE HCL 100 MG/ML 2ML VIAL IVP SCH (09:33)
[2025-05-19] MEDS: 1/2 NS 1000ML 1,000 ML IV SCH (10:14)
--- NOTE | 2025-05-19 12:23 | CONS ---
GASTROENTEROLOGY CONSULTATION NOTE Date of Consultation: May 19, 2025 Time of Consultation: 12:21 History of Present Illness: [40-year-old morbidly obese patient who presents to the emergency room with complaints of upper abdominal pain, and nausea x4 days. We were consulted for acute pancreatitis. Patient's WBC of 9.8, hemoglobin 12.2, platelets 341. History significant for glucose of 122, LFTs are normal, triglyceride 229, lipase 1018. CT of abdomen and pelvis without contrast showing: Mild fatty haziness of fat about pancreas. Correlate clinically to exclude acute pancreatitis. ] Review of Systems: CONSTITUTIONAL: No malaise or change in sensation of wellbeing. ENMT: No rhinorrhea, otorrhea, sinus pain, ear ache. CARDIOVASCULAR: No angina, palpitations, orthopnea or paroxysmal dyspnea. RESPIRATORY: No SOB. GASTROINTESTINAL: No abdominal pain, nausea, vomiting, diarrhea, hematemesis, melena or change in the patient's habitual bowel movements consistency/number. GENITOURINARY: No dysuria, hematuria or change in bladder continence. MUSCULOSKELETAL: No new muscle pain or decrease in muscular strength. No new joint swelling, redness or tenderness. SKIN: No new rash. Past Medical History: ovarian cyst, gastritis, Surgical History csection Coded Allergies: No Known Drug Allergies (Unverified Allergy, Unknown, 08/19/19) Physical Exam: GEN: Awake, alert, oriented in person, time and place, and in no acute distress. HEENT: No sinus tenderness. Tympanic membranes were not examined. No rhinorrhea. Oral pharyngeal mucosa is pink, moist and within normal limits. Neck is supple with no cervical lymphadenopathy, thyromegaly or JVD. CHEST: Inspection, palpation and percussion of the chest were unremarkable. Lung auscultation revealed normal breath sounds bilaterally. CARDIAC: PMI is within normal limits. Heart sounds are regular. Normal S1, S2. No gallop or murmur. ABD: Soft, non-tender and not distended. No peritoneal signs on palpation. No organomegaly. Normal bowel sounds. EXT: No cyanosis or clubbing. No edema. SKIN: Intact. No rashes. JOINTS: No evidence of synovitis or acute arthritis. NEURO: Alert and oriented to name, place and person. Cranial nerve examination is unremarkable. No focal motor deficits. Normal speech. Gait is normal. Strength is normal. Vital Sign (Last 24 Hours) 05/19/25 07:45 Temp 97.5 Pulse 76 Resp 16 B/P (MAP) 107/65 Pulse Ox 99 O2 Delivery Room Air* O2 Flow Rate 0 FiO2 21 Laboratory: [ ] Laboratory: Test 05/19/25 05:55 05/19/25 05:38 Range/Units Urine Color YELLOW YELLOW Urine Appearance CLOUDY H CLEAR Urine pH 5.5 5.0-8.0 Urine Specific [place] 1.030 1.001-1.031 Urine Protein 20 H NEGATIVE mg/dL Urine Glucose (UA) NEGATIVE NEGATIVE mg/dL Urine Ketones NEGATIVE NEGATIVE mg/dL Urine Occult Blood MODERATE H NEGATIVE Urine Nitrate NEGATIVE NEGATIVE Urine Bilirubin NEGATIVE NEGATIVE mg/dL Urine Urobilinogen 0.2 0.2-1.0 mg/dL Urine Leukocyte Esterase NEGATIVE NEGATIVE Jeniffer/uL Urine RBC 2-5 H 0-1 /HPF Urine WBC 2-5 H 0-1 /HPF Urine Squamous Epithelial Cells MANY 0-2 /HPF Urine Bacteria None None Seen /HPF Urine HCG, Qualitative NEGATIVE NEGATIVE White Blood Count 9.8 4.8-10.8 K/uL Red Blood Count 4.07 4.00-5.50 MIL/uL Hemoglobin 12.2 12.0-16.0 g/dL Hematocrit 35.6 L 36-48 % Mean Corpuscular Volume 87.5 79-99 fL Mean Corpuscular Hemoglobin 30.0 27.0-33.0 pg Mean Corpuscular Hemoglobin Concent 34.3 32.0-36.0 g/dL Red Cell Distribution Width 12.8 11.0-15.5 % Platelet Count 341 130-400 K/uL Mean Platelet Volume 9.8 7.5-10.5 fL Immature Granulocyte % (Auto) 0.3 0-1 % Neutrophils (%) (Auto) 66.7 40.0-77.0 % Lymphocytes (%) (Auto) 25.0 21.0-51.0 % Monocytes (%) (Auto) 5.8 3.0-13.0 % Eosinophils (%) (Auto) 1.9 0.0-8.0 % Basophils (%) (Auto) 0.3 0.0-5.0 % Neutrophils # (Auto) 6.5 1.8-7.7 K/uL Lymphocytes # (Auto) 2.5 1.0-4.8 K/uL Monocytes # (Auto) 0.6 0.1-1.0 K/uL Eosinophils # (Auto) 0.19 0.00-0.70 K/uL Basophils # (Auto) 0.03 0.00-0.20 K/uL Absolute Immature Granulocyte (auto 0.03 0-1 K/uL Nucleated Red Blood Cells 0.0 0.0-0.19 % Sodium Level 140 136-145 mmol/L Potassium Level 3.8 3.5-5.1 mmol/L Chloride Level 103 101-111 mmol/L Carbon Dioxide Level 30 21-32 mmol/L Blood Urea Nitrogen 14 7-18 mg/dL Creatinine 0.8 0.5-1.0 mg/dL Glomerular Filtration Rate Calc 94 >90 mL/min Random Glucose 122 H 70-105 mg/dL Total Calcium 9.0 8.5-10.1 mg/dL Total Bilirubin 0.4 0.2-1.0 mg/dL Direct Bilirubin 0.1 0.0-0.3 mg/dL Aspartate Amino Transf (AST/SGOT) 17 10-37 U/L Alanine Aminotransferase (ALT/SGPT) 33 12-78 U/L Alkaline Phosphatase 80 50-136 U/L Total Protein 8.0 6.0-8.3 g/dL Albumin 3.8 3.5-5.0 g/dL Triglycerides Level 229 H 30-200 mg/dL Lipase 1018 *H 16-77 U/L Current Medications Medications (Trade) Dose Ordered Sig/Alexy Route PRN Reason Start Time Stop Time Status Last Admin Dose Admin Enoxaparin Sodium (Lovenox) 40 mg DAILY SQ 05/19/25 09:00 06/18/25 08:59 05/19/25 09:32 40 MG Hydromorphone HCl (DiLAUDid 0.5MG INJ) 0.5 mg Q3H3 PRN IVP SEVERE PAIN (7-10) 05/19/25 08:30 05/24/25 08:29 Ondansetron HCl (zoFRAN 4MG INJ) 4 mg Q4HPRN PRN IVP NAUSEA/VOMITING 05/19/25 08:30 06/18/25 08:29 Pantoprazole Sodium (PROTonix 40MG INJ) 40 mg DAILY IVP 05/19/25 09:00 06/18/25 08:59 05/19/25 09:32 40 MG Sodium Chloride 1,000 ml @ 150 mls/hr Q6H40M IV 05/19/25 08:30 06/18/25 08:29 05/19/25 10:14 150 MLS/HR Thiamine HCl (Vitamin B-1) 100 mg DAILY IVP 05/19/25 09:00 06/18/25 08:59 05/19/25 09:33 100 MG Diagnostics / Radiology: [COPY/PASTE HERE IF NO REPORTS PLEASE DELETE SECTION] Assessment: 1. Acute pancreatitis Possible causes to consider include alcohol, idiopathic, hypertriglyceridemia, medications, hypercalcemia, ERCP, celiac disease, autoimmune pancreatitis, vasculitis Plan: Case discussed with Dr. Benítez 1. NPO 2. Aggressive IV fluids lactated Ringer's 200-400 mL/hour for 12-24 hours to maintain adequate pancreatic perfusion and prevent ischemic necrosis 3. Supportive care with opioid analgesics (avoid NSAIDs) and antiemetics 4. Close patient monitoring of vital signs including O2 saturations, urine outpu t, and electrolyte replacement 5. Resume oral intake within two days if the pain is decreasing and there is no ileus with a low fat, low residue diet. Advance as tolerated 6. Consider CT with IV contrast after 48 hours of aggressive IVF to assess for necrosis if the patient is not progressing. Seven. If oral diet is not tolerated, naso jejunal tube feeds are preferred overt TPN Thank you for allowing us to participate in the care of this patient! ] NINFA JAEGER May 19, 2025 12:23
--- NOTE | 2025-05-19 14:53 | NUR ---
DCP; HomE sw reports she and her family ( Jos Ceballos [phone]) live with her mother Aundrea Iglesias [phone]. Pt states she drives and remains and to do self and home management for self and her family. Pt uses no DME or in home care services. PCP is Ama Kaur and uses [facility] for rx services. Pt denies dc needs and will return home at dc Addendum: 05/19/25 at 1457 by CARI BHATTI Amended: Links added.
--- NOTE | 2025-05-19 16:12 | NUR ---
REPORT GIVEN TO ANGEL
[2025-05-19 17:37] VITALS: BP 152/80; PULSE 80; RESP 18; TEMP 99
[2025-05-19 18:47] VITALS: O2SAT 96
[2025-05-19] MEDS ORDERED: PANT40TA55 PO (18:47)
--- NOTE | 2025-05-19 20:12 | HP ---
HISTORY AND PHYSICAL NOTE DATE OF CONSULTATION: 05/19/25 REASON FOR CONSULTATION: Abdominal pain HISTORY OF PRESENT ILLNESS: This is a 40-year-old morbidly obese female who presented to the emergency room with a upper abdominal pain and nausea that started about 4 days ago. The pain is mostly in the epigastric and right and left upper quadrant areas. Patient reports that she has associated nausea and has not been able to eat and drink normally. She does give a history of constipation and her last bowel movement was 2 days ago. She also indulged in alcohol a last week for her birthday. Patient states that this morning she took the Tylenol and it provided no relief, but the pain became intense Patient denies fever, weight loss, vomiting, diarrhea, urinary frequency, hematuria, dysuria, vaginal bleeding, vag inal discharge. No vomitings. No hematemesis or melena. Temperature 98 pulse 84 respirations 20 blood pressure 119/70 with a pulse oximetry of 96% on room air Allergies: Coded Allergies: No Known Drug Allergies (Unverified Allergy, Unknown, 08/19/19) Home Meds Active Scripts Pantoprazole Sodium (Pantoprazole Sodium) 20 Mg Tablet.dr, 1 TAB PO DAILY for 30 Days, #30 TAB 0 Refills Prov:ZELDA RIVERA [facility] 07/30/24 Dicyclomine HCl (Bentyl) 20 Mg Tab, 1 TAB PO BID for irritable bowel symptoms for 30 Days, #60 TAB 0 Refills Prov:ZELDA RIVERA [facility] 07/30/24 Ondansetron (Ondansetron Odt) 4 Mg Tab.rapdis, 4 MG PO Q6HPRN PRN for nausea, #16 TAB 0 Refills Prov:ZELDA RIVERA [facility] 07/30/24 Famotidine (Famotidine) 20 Mg Tablet, 20 MG PO BID for 30 Days, #60 TAB Prov:KATEY HANSON MD 12/17/23 Cefuroxime Axetil (Cefuroxime) 500 Mg Tablet, 500 MG PO BID, #20 TAB 0 Refills Prov:BUCKY SHIRLEY [facility] 11/05/23 Dicyclomine HCl (Dicyclomine HCl) 10 Mg Capsule, 20 MG PO TIDP PRN for ABDOMINAL PAIN, #18 CAP 0 Refills Prov:BUCKY SHIRLEY [facility] 11/05/23 Past Medical History Past Medical History: Ovarian Cyst, Other Additional Past Medical Hx: HX OF GASTRITIS Surgical History: Social History: ETOH, Negative LMP: May 14, 2025 RN Note Reviewed/Agreed w/PFSH: Yes Review of System Dictation Constitutional: Negative for fever,chills, and weight loss Eyes: Negative for injury, pain,redness, and discharge ENT: Negative for injury,pain or swelling Cardiovascular: Negative for chest pain, palpitations, and edema Respiratory: Negative for shortness of breath, cough, and wheezing, Abdomen/GI: Positive for abdominal pain, nausea, and constipation denied vomiting, diarrhea, Back: Negative for injury and pain : Negative for injury, bleeding and discharge MS/Extremity: Negative for injury and deformity Skin: Negative for rash, and discoloration Neuro: Negative for headache, weakness, numbness, tingling, and seizure Psych: Negative for suicide ideation, homicidal ideation, and hallucinations ALLERGIES: Coded Allergies: No Known Drug Allergies (Unverified Allergy, Unknown, 08/19/19) HOME MEDS: Active Scripts Pantoprazole Sodium (Pantoprazole Sodium) 20 Mg Tablet.dr, 1 TAB PO DAILY for 30 Days, #30 TAB 0 Refills Prov:ZELDA RIVERA [facility] 07/30/24 Dicyclomine HCl (Bentyl) 20 Mg Tab, 1 TAB PO BID for irritable bowel symptoms for 30 Days, #60 TAB 0 Refills Prov:ZELDA RIVERA [facility] 07/30/24 Ondansetron (Ondansetron Odt) 4 Mg Tab.rapdis, 4 MG PO Q6HPRN PRN for nausea, #16 TAB 0 Refills Prov:ZELDA RIVERA [facility] 07/30/24 Famotidine (Famotidine) 20 Mg Tablet, 20 MG PO BID for 30 Days, #60 TAB Prov:KATEY HANSON MD 12/17/23 Cefuroxime Axetil (Cefuroxime) 500 Mg Tablet, 500 MG PO BID, #20 TAB 0 Refills Prov:BUCKY SHIRLEY [facility] 11/05/23 Dicyclomine HCl (Dicyclomine HCl) 10 Mg Capsule, 20 MG PO TIDP PRN for ABDOMINAL PAIN, #18 CAP 0 Refills Prov:BUCKY SHIRLEY [facility] 11/05/23 Reported Medications Pantoprazole Sodium (Protonix) 40 Mg Ectab, 40 TAB PO DAILY for 30 Days, #30 TAB 0 Refills 05/19/25 INPATIENT MEDS: Current Medications Medications Dose Ordered Sig/Alexy Start Time Stop Time Status Last Admin Sodium Chloride 1,000 ml @ 150 mls/hr Q6H40M 05/19/25 08:30 06/18/25 08:29 05/19/25 19:35 Hydromorphone HCl 0.5 mg Q3H3 PRN 05/19/25 08:30 05/24/25 08:29 05/19/25 17:25 Pantoprazole Sodium 40 mg DAILY 05/19/25 09:00 06/18/25 08:59 05/19/25 09:32 Ondansetron HCl 4 mg Q4HPRN PRN 05/19/25 08:30 06/18/25 08:29 05/19/25 17:24 Enoxaparin Sodium 40 mg DAILY 05/19/25 09:00 06/18/25 08:59 05/19/25 09:32 Thiamine HCl 100 mg DAILY 05/19/25 09:00 06/18/25 08:59 05/19/25 09:33 VITAL SIGNS Vital Signs Date Time Temp Pulse Resp B/P (MAP) Pulse Ox O2 Delivery O2 Flow Rate FiO2 05/19/25 18:47 96 Room Air* 0 21 05/19/25 17:37 99.0 80 18 152/80 96 Room Air 05/19/25 16:17 98.6 72 16 120/72 98 Room Air* 0 21 05/19/25 12:00 97.5 68 16 115/70 97 Room Air* 0 05/19/25 07:45 97.5 76 16 107/65 99 Room Air* 0 21 05/19/25 05:59 98.2 71 18 124/76 96 Room Air* 0 21 05/19/25 05:21 98.1 84 20 119/70 96 Room Air PHYSICAL EXAM Initial Vital Sign VS Vital Signs Date Time Temp Pulse Resp B/P (MAP) Pulse Ox O2 Delivery O2 Flow Rate FiO2 05/19/25 05:21 98.1 84 20 119/70 96 Room Air 05/19/25 05:59 0 21 Physical Exam Dictation General: awake, alert, NAD morbidly obese Head/Face: Normocephalic, atraumatic Eyes: PERRL, EOMI, vision at baseline ENT: oral cavity clear, TMs clear, no signs of infection Neck: Trachea midline, supple, no nuchal rigidity Cardiovascular: RRR, normal S1/S2, No MRGs, no JVD Respiratory: CTAB, no respiratory distress, No rales or wheezes Abdomen: Soft, non-tender, non-distended, normal bowel sounds, no guarding or rebound. Skin: Warm, dry, normal turgor, no rash MS/Extremity: Pulses equal, no cyanosis, neurovascular intact, FROM Neuro: COAx4, GCS 15, strength 5/5, CN 2-12 intact, normal cerebellar exam, normal gait, Psych: Normal behavior, mood, and affect normal Extremities-trace edema without any palpable cords, Homans sign is negative LABORATORY RESULTS Laboratory Tests 05/19/25 05:38: White Blood Count 9.8, Red Blood Count 4.07, Hemoglobin 12.2, Hematocrit 35.6, Mean Corpuscular Volume 87.5, Mean Corpuscular Hemoglobin 30.0, Mean Corpuscular Hemoglobin Concent 34.3, Red Cell Distribution Width 12.8, Platelet Count 341, Mean Platelet Volume 9.8, Immature Granulocyte % (Auto) 0.3, Neutrophils (%) (Auto) 66.7, Lymphocytes (%) (Auto) 25.0, Monocytes (%) (Auto) 5.8, Eosinophils (%) (Auto) 1.9, Basophils (%) (Auto) 0.3, Neutrophils # (Auto) 6.5, Lymphocytes # (Auto) 2.5, Monocytes # (Auto) 0.6, Eosinophils # (Auto) 0.19, Basophils # (Auto) 0.03, Absolute Immature Granulocyte (auto 0.03, Nucleated Red Blood Cells 0.0, Sodium Level 140, Potassium Level 3.8, Chloride Level 103, Carbon Dioxide Level 30, Blood Urea Nitrogen 14, Creatinine 0.8, Glomerular Filtration Rate Calc 94, Random Glucose 122, Total Calcium 9.0, Total Bilirubin 0.4, Direct Bilirubin 0.1, Aspartate Amino Transf (AST/SGOT) 17, Alanine Aminotransferase (ALT/SGPT) 33, Alkaline Phosphatase 80, Total Protein 8.0, Albumin 3.8, Triglycerides Level 229, Lipase 1018 10/16/25 05:55: Urine Color YELLOW, Urine Appearance CLOUDY, Urine pH 5.5, Urine Specific Anna 1.030, Urine Protein 20, Urine Glucose (UA) NEGATIVE, Urine Ketones NEGATIVE, Urine Occult Blood MODERATE, Urine Nitrate NEGATIVE, Urine Bilirubin NEGATIVE, Urine Urobilinogen 0.2, Urine Leukocyte Esterase NEGATIVE, Urine RBC 2-5, Urine WBC 2-5, Urine Squamous Epithelial Cells MANY, Urine Bacteria None, Urine HCG, Qualitative NEGATIVE PROBLEM LIST: (1) Acute pancreatitis ICD Codes: K85.90 - Acute pancreatitis without necrosis or infection, unspecified (2) Intractable abdominal pain ICD Codes: R10.9 - Unspecified abdominal pain (3) Leukocytosis ICD Codes: D72.829 - Elevated white blood cell count, unspecified PLAN Bowel rest IV hydration consult GI and follow-through with ultrasound of abdomen KAYLAN BRADY MD May 19, 2025 20:12
[2025-05-19 20:24] VITALS: BP 138/83; PULSE 82; RESP 16; TEMP 97.6
[2025-05-19 20:42] VITALS: O2SAT 98
[2025-05-20] VITALS (7 sets, daily range): BP systolic 115–138; BP diastolic 67–82; PULSE 64–82; RESP 16–19; TEMP 97.5–98.8; O2SAT 95–98
[2025-05-20 04:54] LABS: IMMATURE GRANULOCYTE ABSOLUTE 0.03 K/uL (0-1); NUCLEATED RED BLOOD CELLS 0.0 % (0.0-0.19); PLATELET COUNT (AUTO) 321 K/uL (130-400); RED BLOOD CELL COUNT(AUTO) 3.55 MIL/uL (4.00-5.50); RED CELL DISTRIBUTION WIDTH 12.7 % (11.0-15.5); WHITE BLOOD COUNT (AUTO) 8.4 K/uL (4.8-10.8)
[2025-05-20 05:33] LABS: ASPARTATE AMINOTRANSFERASE 15.0 U/L (10-37); CREATININE 0.7 mg/dL (0.5-1.0); GLOMERULAR FILTR. RATE CALC 111.0 mL/min (>90); GLUCOSE,RANDOM 95.0 mg/dL (70-105); SODIUM SERUM 137.0 mmol/L (136-145); TOTAL PROTEIN, SERUM 6.9 g/dL (6.0-8.3); UREA NITROGEN, BLOOD 8.0 mg/dL (7-18)
--- NOTE | 2025-05-20 13:12 | HMCIMG ---
US ABDOMINAL RUQ\E\LTD HISTORY: ACUTE PANCRETITIS COMPARISON: None FINDINGS: There is normal sonographic appearance of the liver. The liver length is 16.5 cm.. There are no focal liver masses. The liver is not enlarged. The portal vein velocity is 16.2 cm/s. There is a normal-appearing gallbladder. Lower bladder wall thickness is 0.2 cm. The common bile duct measures 0.3 cm. Common duct is normal. Right kidney is normal with no evidence of mass, hydronephrosis or stone.The right kidney measures 11.7 x 5.8 x 5.4 cm. The pancreas is partly visualized with obscuring of the pancreatic tail due to overlying bowel gas which appears to be grossly normal. No evidence of any inflammation of the pancreas or fluid collection seen. IMPRESSION: 1. Normal right upper quadrant sonogram.
--- NOTE | 2025-05-20 19:33 | PN ---
PROGRESS NOTE PROGRESS NOTE DATE OF PROGRESS NOTE: 05/20/25 SUBJECTIVE: Patient's abdominal pain is improved VITAL SIGNS Vital Signs Date Time Temp Pulse Resp B/P (MAP) Pulse Ox O2 Delivery O2 Flow Rate FiO2 05/20/25 16:21 98.1 72 16 134/69 97 Room Air 0.0 05/20/25 08:00 21 PHYSICAL EXAM: Initial Vital Sign VS Vital Signs Date Time Temp Pulse Resp B/P (MAP) Pulse Ox O2 Delivery O2 Flow Rate FiO2 05/19/25 05:21 98.1 84 20 119/70 96 Room Air 05/19/25 05:59 0 21 Physical Exam Dictation General: awake, alert, NAD morbidly obese Head/Face: Normocephalic, atraumatic Eyes: PERRL, EOMI, vision at baseline ENT: oral cavity clear, TMs clear, no signs of infection Neck: Trachea midline, supple, no nuchal rigidity Cardiovascular: RRR, normal S1/S2, No MRGs, no JVD Respiratory: CTAB, no respiratory distress, No rales or wheezes Abdomen: Soft, non-tender, non-distended, normal bowel sounds, no guarding or rebound. Skin: Warm, dry, normal turgor, no rash MS/Extremity: Pulses equal, no cyanosis, neurovascular intact, FROM Neuro: COAx4, GCS 15, strength 5/5, CN 2-12 intact, normal cerebellar exam, normal gait, Psych: Normal behavior, mood, and affect normal Extremities-trace edema without any palpable cords, Homans sign is negative LABORATORY: Laboratory Result(s) Test 05/20/25 04:35 White Blood Count 8.4 K/uL (4.8-10.8) Red Blood Count 3.55 MIL/uL (4.00-5.50) Hemoglobin 10.7 g/dL (12.0-16.0) Hematocrit 30.5 % (36-48) Mean Corpuscular Volume 85.9 fL (79-99) Mean Corpuscular Hemoglobin 30.1 pg (27.0-33.0) Mean Corpuscular Hemoglobin Concent 35.1 g/dL (32.0-36.0) Red Cell Distribution Width 12.7 % (11.0-15.5) Platelet Count 321 K/uL (130-400) Mean Platelet Volume 10.0 fL (7.5-10.5) Immature Granulocyte % (Auto) 0.4 % (0-1) Neutrophils (%) (Auto) 64.0 % (40.0-77.0) Lymphocytes (%) (Auto) 29.1 % (21.0-51.0) Monocytes (%) (Auto) 4.7 % (3.0-13.0) Eosinophils (%) (Auto) 1.4 % (0.0-8.0) Basophils (%) (Auto) 0.4 % (0.0-5.0) Neutrophils # (Auto) 5.4 K/uL (1.8-7.7) Lymphocytes # (Auto) 2.5 K/uL (1.0-4.8) Monocytes # (Auto) 0.4 K/uL (0.1-1.0) Eosinophils # (Auto) 0.12 K/uL (0.00-0.70) Basophils # (Auto) 0.03 K/uL (0.00-0.20) Absolute Immature Granulocyte (auto 0.03 K/uL (0-1) Nucleated Red Blood Cells 0.0 % (0.0-0.19) Sodium Level 137 mmol/L (136-145) Potassium Level 3.8 mmol/L (3.5-5.1) Chloride Level 103 mmol/L (101-111) Carbon Dioxide Level 26 mmol/L (21-32) Blood Urea Nitrogen 8 mg/dL (7-18) Creatinine 0.7 mg/dL (0.5-1.0) Glomerular Filtration Rate Calc 111 mL/min (>90) Random Glucose 95 mg/dL (70-105) Total Calcium 8.3 mg/dL (8.5-10.1) Total Bilirubin 0.5 mg/dL (0.2-1.0) Aspartate Amino Transf (AST/SGOT) 15 U/L (10-37) Alanine Aminotransferase (ALT/SGPT) 25 U/L (12-78) Alkaline Phosphatase 71 U/L (50-136) Total Protein 6.9 g/dL (6.0-8.3) Albumin 3.1 g/dL (3.5-5.0) Lipase 117 U/L (16-77) INPATIENT MEDS: Current Medications Medications Dose Ordered Sig/Alexy Start Time Stop Time Status Last Admin Sodium Chloride 1,000 ml @ 150 mls/hr Q6H40M 05/19/25 08:30 06/18/25 08:29 05/20/25 18:08 Hydromorphone HCl 0.5 mg Q3H3 PRN 05/19/25 08:30 05/24/25 08:29 05/19/25 17:25 Pantoprazole Sodium 40 mg DAILY 05/19/25 09:00 06/18/25 08:59 05/20/25 08:48 Ondansetron HCl 4 mg Q4HPRN PRN 05/19/25 08:30 06/18/25 08:29 05/19/25 22:32 Enoxaparin Sodium 40 mg DAILY 05/19/25 09:00 06/18/25 08:59 05/20/25 08:49 Thiamine HCl 100 mg DAILY 05/19/25 09:00 06/18/25 08:59 05/20/25 08:48 PROBLEM LIST: (1) Acute pancreatitis ICD Code: K85.90 - Acute pancreatitis without necrosis or infection, unspecified (2) Intractable abdominal pain ICD Code: R10.9 - Unspecified abdominal pain (3) Leukocytosis ICD Code: D72.829 - Elevated white blood cell count, unspecified PLAN: Acute pancreatitis clinically improved progress diet as tolerated after GI input ultrasound of abdomen is pending KAYLAN BRADY MD May 20, 2025 19:33
[2025-05-21] VITALS: BP 113/71; PULSE 60; RESP 17; TEMP 97.5
[2025-05-21 03:38] LABS: IMMATURE GRANULOCYTE ABSOLUTE 0.02 K/uL (0-1); NUCLEATED RED BLOOD CELLS 0.0 % (0.0-0.19); PLATELET COUNT (AUTO) 331 K/uL (130-400); RED BLOOD CELL COUNT(AUTO) 3.69 MIL/uL (4.00-5.50); RED CELL DISTRIBUTION WIDTH 12.7 % (11.0-15.5); WHITE BLOOD COUNT (AUTO) 7.8 K/uL (4.8-10.8)
[2025-05-21 03:58] LABS: ASPARTATE AMINOTRANSFERASE 20.0 U/L (10-37); CREATININE 0.7 mg/dL (0.5-1.0); GLOMERULAR FILTR. RATE CALC 111.0 mL/min (>90); GLUCOSE,RANDOM 95.0 mg/dL (70-105); SODIUM SERUM 143.0 mmol/L (136-145); TOTAL PROTEIN, SERUM 6.9 g/dL (6.0-8.3); UREA NITROGEN, BLOOD 9.0 mg/dL (7-18)
[2025-05-21 04:00] VITALS: BP 99/55; PULSE 59; RESP 16; TEMP 98.2
[2025-05-21 08:02] VITALS: BP 134/79; PULSE 75; RESP 18; TEMP 97.7
[2025-05-21 10:00] VITALS: O2SAT 96
[2025-05-21 10:33] VITALS: BP 130/78; PULSE 79; RESP 18; TEMP 97.8
[2025-05-21 16:08] VITALS: BP 148/74; PULSE 83; RESP 19; TEMP 97.9
--- NOTE | 2025-05-24 21:49 | DS ---
Discharge Summary DIAGNOSE(S): [Acute pancreatitis] HOSPITAL COURSE SUMMARY: [Patient improved with bowel as progress diet and was discharged] ENERGY CONSERVATION DIRECTOR(S): [] PROCEDURE(S)/TREATMENT(S): [] PROBLEM(S): [] FOLLOW-UP TEST(S): [] DISCHARGE INSTRUCTIONS: [Follow up with PCP in 1-2 days] Home Meds Reported Medications Pantoprazole Sodium (Protonix) 40 Mg Ectab, 40 TAB PO DAILY for 30 Days, #30 TAB 0 Refills 05/19/25 Discontinued Scripts Pantoprazole Sodium (Pantoprazole Sodium) 20 Mg Tablet.dr, 1 TAB PO DAILY for 30 Days, #30 TAB 0 Refills Prov:ZELDA RIVERA [facility] 07/30/24 Dicyclomine HCl (Bentyl) 20 Mg Tab, 1 TAB PO BID for irritable bowel symptoms for 30 Days, #60 TAB 0 Refills Prov:ZELDA RIVERA [facility] 07/30/24 Ondansetron (Ondansetron Odt) 4 Mg Tab.rapdis, 4 MG PO Q6HPRN PRN for nausea, #16 TAB 0 Refills Prov:ZELDA RIVERA [facility] 07/30/24 Famotidine (Famotidine) 20 Mg Tablet, 20 MG PO BID for 30 Days, #60 TAB Prov:KATEY HANSON MD 12/17/23 Cefuroxime Axetil (Cefuroxime) 500 Mg Tablet, 500 MG PO BID, #20 TAB 0 Refills Prov:[facility] 11/05/23 Dicyclomine HCl (Dicyclomine HCl) 10 Mg Capsule, 20 MG PO TIDP PRN for ABDOMINAL PAIN, #18 CAP 0 Refills Prov:[facility]Y [facility] 11/05/23 KAYLAN BRADY MD May 24, 2025 21:49
== END 2025-05-21 18:31 | disposition home or self-care (01) | DRG 440 ==
LOC: EDH 05:19 → EDHIP 08:21 → 1MS 17:05
PROVIDERS: ADMIT Internal Medicine; ATTEND Internal Medicine
DX: K85.90 Acute pancreatitis without necrosis or infection, unspecified (principal); D72.829 Elevated white blood cell count, unspecified; K59.00 Constipation, unspecified; E66.01 Morbid (severe) obesity due to excess calories; Z68.32 Body mass index [BMI] 32.0-32.9, adult
CPT/HCPCS: 36415; 74176; 76705; 80048; 80053; 80076; 81001; 81025; 83690; 84478; 85025; 96374; 96375; 99285; J1171; J1650; J2270; J2405; J2470; J3411; J7030; J1308